=== PATIENT | male | born 1945 | race Caucasian/White ===

== ENCOUNTER 2018-07-02 20:43 | Inpatient (IN) | payer OTHER, MEDICARE ==
[2018-07-02] MEDS ORDERED: SODIUM CHLORIDE 0.9% 1,000 ML IV STA (21:14)
[2018-07-02 21:38] LABS: Basophils % (A) 0 %; Eosinophils # (A) 0.1 k/uL (0-0.7); Eosinophils % (A) 1 %; HCT 40.3 % (39.0-53.0); Lymphocytes # (A) 1.5 k/uL (1.0-4.8); Lymphocytes % (A) 12 %; MCH 29.9 pg (25.0-35.0); MCHC 34.7 g/dL (31.0-37.0); MCV 86.2 fL (80.0-100.0); Mean Platelet Volume 6.8; Monocytes # (A) 0.6 k/uL (0-1.0); Monocytes % (A) 5 %; Neutrophils # (A) 10.3 k/uL (1.3-7.7); Neutrophils % (A) 81 %; Platelet Count 216 k/uL (150-450); RBC 4.67 m/uL (4.30-5.90); RDW 13.3 % (11.5-15.5); WBC 12.8 k/uL (3.8-10.6)
[2018-07-02 21:59] LABS: Appearance,Urine Clear (Clear); Bilirubin,Urine Negative (Negative); Blood,Urine Trace (Negative); Color,Urine Yellow; Glucose,Urine (UA) Negative (Negative); Ketones,Urine Negative (Negative); Leukocyte Esterase,Urine Negative (Negative); Mucus,Urine Rare /hpf; Nitrite,Urine Negative (Negative); Protein,Urine Negative (Negative); RBC,Urine 1 /hpf (0-5); Squamous Epithelial Cell,Urine <1 /hpf (0-4); Urobilinogen,Urine <2.0 mg/dL (<2.0); WBC,Urine <1 /hpf (0-5)
[2018-07-02 22:08] LABS: Albumin 4.3 g/dL (3.5-5.0); Calcium 9.3 mg/dL (8.4-10.2); Potassium 4.2 mmol/L (3.5-5.1); Total Protein 7.1 g/dL (6.3-8.2)
--- NOTE | 2018-07-02 22:12 | ED ---
Abdominal Pain HPI - General Source: patient Mode of arrival: ambulatory Limitations: no limitations <Farrah Hernandez - Last Filed: 07/03/18 00:55> <Kenya Eaton - Last Filed: 07/03/18 08:03> - General Chief Complaint: Abdominal Pain Stated Complaint: Abd pain Time Seen by Provider: 07/02/18 21:09 - History of Present Illness Initial Comments: 72-year-old male patient presents to emergency department today for evaluation of left lower quadrant abdominal pain. Patient states this started around 2:00 this afternoon. Patient states the pain is present constant symptoms onset. Patient states the pain is sharp in nature. States any type of movement or pressure over the area causes an increase of the pain. Patient denies any known fevers or chills. Denies any nausea, vomiting, constipation, diarrhea. States he is urinating without difficulty and denies any hematuria, dysuria, urinary frequency, urinary urgency. Patient denies any history of similar type pain. Patient states his last colonoscopy was 4 years ago and was clean. Patient denies any history of abdominal surgery. States he does have history of high cholesterol and hypertension but is otherwise healthy. Patient denies any recent rash, shortness breath, chest pain, back pain, numbness, tingling, dizziness, weakness, headache, visual changes, or any other complaints. (Farrah Hernandez) - Related Data Allergies Allergy/AdvReac Type Severity Reaction Status Date / Time codeine Allergy Nausea & Verified 07/02/18 21:01 Vomiting meperidine [From Demerol] Allergy Nausea & Verified 07/02/18 21:01 Vomiting Review of Systems ROS Other: All systems not noted in ROS Statement are negative. <Farrah Hernandez - Last Filed: 07/03/18 00:55> ROS Other: All systems not noted in ROS Statement are negative. <Kenya Eaton - Last Filed: 07/03/18 08:03> ROS Statement: Those systems with pertinent positive or pertinent negative responses have been documented in the HPI. Past Medical History Past Medical History: Hyperlipidemia History of Any Multi-Drug Resistant Organisms: None Reported Past Surgical History: Tonsillectomy Past Psychological History: Depression Smoking Status: Never smoker Past Alcohol Use History: Rare Past Drug Use History: None Reported - Past Family History Mother Family Medical History: No Reported History Additional Family Medical History / Comment(s): gallbladder removal Brother(s) Family Medical History: No Reported History <Farrah Hernandez Pau - Last Filed: 07/03/18 00:55> General Exam Limitations: no limitations General appearance: alert, in no apparent distress, other (Physical well-d eveloped, well-nourished elderly male patient in no acute distress. Vital signs upon presentation are temperature 100.0F, pulse 68, respirations 18, blood pressure 140/73, pulse ox 98% on room air.) Eye exam: Present: normal appearance, PERRL, EOMI. Absent: scleral icterus, conjunctival injection, periorbital swelling ENT exam: Present: normal exam, normal oropharynx, mucous membranes moist Respiratory exam: Present: normal lung sounds bilaterally. Absent: respiratory distress, wheezes, rales, rhonchi, stridor Cardiovascular Exam: Present: regular rate, normal rhythm, normal heart sounds. Absent: systolic murmur, diastolic murmur, rubs, gallop, clicks GI/Abdominal exam: Present: soft, tenderness (Left lower quadrant tenderness), guarding, normal bowel sounds. Absent: distended, rebound, rigid Neurological exam: Present: alert, oriented X3, CN II-XII intact Psychiatric exam: Present: normal affect, normal mood Skin exam: Present: warm, dry, intact, normal color. Absent: rash <Farrah Hernandez Pau - Last Filed: 07/03/18 00:55> Course Vital Signs 07/02/18 07/02/18 07/03/18 20:56 22:49 00:24 Temperature 100.0 F H 100.4 F H 100.2 F H Pulse Rate 68 78 72 Pulse Rate [ Pulse Oximetery ] Respiratory 18 18 18 Rate Blood Pressure 140/73 152/77 124/68 Blood Pressure [Right Arm] O2 Sat by Pulse 98 98 95 Oximetry 07/03/18 00:47 Temperature 98.4 F Pulse Rate Pulse Rate [ 77 Pulse Oximetery ] Respiratory 14 Rate Blood Pressure Blood Pressure 148/75 [Right Arm] O2 Sat by Pulse 95 Oximetry Medical Decision Making - Lab Data Result diagrams: 07/02/18 21:25 07/02/18 21:25 - Radiology Data Radiology results: report reviewed, image reviewed <Farrah Hernandez - Last Filed: 07/03/18 00:55> - Lab Data Result diagrams: 07/02/18 21:25 07/02/18 21:25 <Kenya Eaton - Last Filed: 07/03/18 08:03> - Medical Decision Making 72-year-old male patient presents to the emergency department today for evaluation of left lower quadrant abdominal pain. Patient did have elevated temperature upon arrival. Physical examination did reveal left lower quadrant abdominal tenderness. Labs reviewed and did reveal leukocytosis with a white count of 12.8. CT abdomen and pelvis was obtained and did show evidence for diverticulitis involving the distal descending colon. Patient be admitted for IV antibiotics including Rocephin and Flagyl. Pain management will be provided. I did discuss findings, results, and plan with the patient. He is agreeable. My attending Dr. Eaton did discuss the case with Dr. Obrien who is accepting. (Farrah Hernandez) I was available for consultation in the emergency department. The history and physical exam were done by the midlevel provider. I was consulted for this patient's care. I reviewed the case with the midlevel provider and based on their presentation of the patient, I agree with the assessment, medical decision making and plan of care as documented. I discussed patient care with the admitting physician Dr. Obrien who accepts the admission for 72-year-old gentleman with diverticulitis. Chart was dictated using [employer] dictation software. Attempts were made to correct any dictation errors however some typographical errors may persist. (Kenya Eaton) - Lab Data Lab Results 07/02/18 07/02/18 07/02/18 Range/Units 21:25 21:25 21:25 WBC 12.8 H (3.8-10.6) k/uL RBC 4.67 (4.30-5.90) m/uL Hgb 14.0 (13.0-17.5) gm/dL Hct 40.3 (39.0-53.0) % MCV 86.2 (80.0-100.0) fL MCH 29.9 (25.0-35.0) pg MCHC 34.7 (31.0-37.0) g/dL RDW 13.3 (11.5-15.5) % Plt Count 216 (150-450) k/uL Neutrophils % 81 % Lymphocytes % 12 % Monocytes % 5 % Eosinophils % 1 % Basophils % 0 % Neutrophils # 10.3 H (1.3-7.7) k/uL Lymphocytes # 1.5 (1.0-4.8) k/uL Monocytes # 0.6 (0-1.0) k/uL Eosinophils # 0.1 (0-0.7) k/uL Basophils # 0.0 (0-0.2) k/uL Sodium 139 (137-145) mmol/L Potassium 4.2 (3.5-5.1) mmol/L Chloride 105 (98-107) mmol/L Carbon Dioxide 23 (22-30) mmol/L Anion Gap 11 mmol/L BUN 12 (9-20) mg/dL Creatinine 1.00 (0.66-1.25) mg/dL Est GFR (CKD-EPI)AfAm 87 (>60 ml/min/1.73 sqM) Est GFR (CKD-EPI)NonAf 75 (>60 ml/min/1.73 sqM) Glucose 141 H (74-99) mg/dL Plasma Lactic Acid Rashad 1.3 (0.7-2.0) mmol/L Calcium 9.3 (8.4-10.2) mg/dL Total Bilirubin 1.0 (0.2-1.3) mg/dL AST 20 (17-59) U/L ALT 27 (21-72) U/L Alkaline Phosphatase 90 (38-126) U/L Total Protein 7.1 (6.3-8.2) g/dL Albumin 4.3 (3.5-5.0) g/dL Amylase 49 (30-110) U/L Lipase 48 (23-300) U/L Urine Color Urine Appearance (Clear) Urine pH (5.0-8.0) Ur Specific Staley (1.001-1.035) Urine Protein (Negative) Urine Glucose (UA) (Negative) Urine Ketones (Negative) Urine Blood (Negative) Urine Nitrite (Negative) Urine Bilirubin (Negative) Urine Urobilinogen (<2.0) mg/dL Ur Leukocyte Esterase (Negative) Urine RBC (0-5) /hpf Urine WBC (0-5) /hpf Ur Squamous Epith Cells (0-4) /hpf Urine Mucus (None) /hpf 05/05/19 Range/Units 21:40 WBC (3.8-10.6) k/uL RBC (4.30-5.90) m/uL Hgb (13.0-17.5) gm/dL Hct (39.0-53.0) % MCV (80.0-100.0) fL MCH (25.0-35.0) pg MCHC (31.0-37.0) g/dL RDW (11.5-15.5) % Plt Count (150-450) k/uL Neutrophils % % Lymphocytes % % Monocytes % % Eosinophils % % Basophils % % Neutrophils # (1.3-7.7) k/uL Lymphocytes # (1.0-4.8) k/uL Monocytes # (0-1.0) k/uL Eosinophils # (0-0.7) k/uL Basophils # (0-0.2) k/uL Sodium (137-145) mmol/L Potassium (3.5-5.1) mmol/L Chloride (98-107) mmol/L Carbon Dioxide (22-30) mmol/L Anion Gap mmol/L BUN (9-20) mg/dL Creatinine (0.66-1.25) mg/dL Est GFR (CKD-EPI)AfAm (>60 ml/min/1.73 sqM) Est GFR (CKD-EPI)NonAf (>60 ml/min/1.73 sqM) Glucose (74-99) mg/dL Plasma Lactic Acid Rashad (0.7-2.0) mmol/L Calcium (8.4-10.2) mg/dL Total Bilirubin (0.2-1.3) mg/dL AST (17-59) U/L ALT (21-72) U/L Alkaline Phosphatase (38-126) U/L Total Protein (6.3-8.2) g/dL Albumin (3.5-5.0) g/dL Amylase (30-110) U/L Lipase (23-300) U/L Urine Color Yellow Urine Appearance Clear (Clear) Urine pH 6.0 (5.0-8.0) Ur Specific Staley 1.020 (1.001-1.035) Urine Protein Negative (Negative) Urine Glucose (UA) Negative (Negative) Urine Ketones Negative (Negative) Urine Blood Trace H (Negative) Urine Nitrite Negative (Negative) Urine Bilirubin Negative (Negative) Urine Urobilinogen <2.0 (<2.0) mg/dL Ur Leukocyte Esterase Negative (Negative) Urine RBC 1 (0-5) /hpf Urine WBC <1 (0-5) /hpf Ur Squamous Epith Cells <1 (0-4) /hpf Urine Mucus Rare H (None) /hpf - Radiology Data CT abdomen and pelvis was obtained. Report was reviewed in its entirety. Impression by Dr. Chris shows diverticulitis involving the distal descending colon. No evidence for perforation or abscess collection. (Farrah Hernandez) Disposition Decision to Admit Reason: Admit from EC Decision Date: 07/02/18 Decision Time: 23:28 <Farrah Hernandez - Last Filed: 07/03/18 00:55> <Kenya Eatno - Last Filed: 07/03/18 08:03> Clinical Impression: Acute diverticulitis Disposition: ADMITTED IP TO THIS [facility] Condition: Serious
[2018-07-02] MEDS ORDERED: ACETAMINOPHEN TAB 325 MG TAB PO STA (22:51)
--- NOTE | 2018-07-02 23:10 | CT ---
EXAM: CT Abdomen and Pelvis With Intravenous Contrast CLINICAL HISTORY: abdominal pain TECHNIQUE: Axial computed tomography images of the abdomen and pelvis with intravenous contrast. CTDI is 24.6 mGy and DLP is 1233.5 mGy-cm. This CT exam was performed using one or more of the following dose reduction techniques: automated exposure control, adjustment of the mA and/or kV according to patient size, and/or use of iterative reconstruction technique. COMPARISON: No relevant prior studies available. FINDINGS: Lung bases: Unremarkable. No mass. No consolidation. ABDOMEN: Liver: Unremarkable. No mass. Gallbladder and bile ducts: Unremarkable. No calcified stones. No ductal dilation. Pancreas: Unremarkable. No mass. No ductal dilation. Spleen: Unremarkable. No splenomegaly. Adrenals: Unremarkable. No mass. Kidneys and ureters: Unremarkable. No solid mass. No hydronephrosis. Stomach and bowel: There is inflammation around the distal descending colon consistent with diverticulitis. There is no evidence for abscess collection is no free air. No free fluid. PELVIS: Appendix: No findings to suggest acute appendicitis. Bladder: Unremarkable. No mass. Reproductive: Unremarkable as visualized. ABDOMEN and PELVIS: Intraperitoneal space: Unremarkable. No free air. No significant fluid collection. Bones/joints: No acute fracture. No dislocation. Soft tissues: Unremarkable. Vasculature: Unremarkable. No abdominal aortic aneurysm. Lymph nodes: Unremarkable. No enlarged lymph nodes. IMPRESSION: Diverticulitis involving the distal descending colon. No evidence for perforation or abscess collection.
[2018-07-02] MEDS ORDERED: NALOXONE 0.4 MG/ML 1 ML VIAL IV PRN (23:24)
[2018-07-02] MEDS ORDERED: ONDANSETRON 4 MG/2 ML VIAL IVP PRN (23:24)
[2018-07-02] MEDS: MORPHINE SULFATE 4 MG/ML SYRINGE IV PRN (23:30)
[2018-07-02] MEDS ORDERED: metroNIDAZOLE-NS PMX 500 MG in SALINE 1 100ML.BAG IVPB ONE (23:45)
[2018-07-02] MEDS: SODIUM CHLORIDE 0.9% 1,000 ML IV SCH (23:54)
[2018-07-03] MEDS: metroNIDAZOLE-NS PMX 500 MG in SALINE 1 100ML.BAG IVPB SCH ×2 (08:40→17:16)
[2018-07-03] MEDS: ATORVASTATIN 10 MG TAB PO SCH (08:44)
[2018-07-03] MEDS: buPROPion XL 300 MG TAB.ER.24H PO SCH (09:41)
--- NOTE | 2018-07-03 09:56 | P.HPIM ---
History of Present Illness H&P Date: 07/03/18 This is a 72-year-old male patient of Dr. Douglas. Patient presented with complaints of abdominal pain that started yesterday afternoon. Patient denies any nausea vomiting or diarrhea. CT of abdomen and pelvis completed showing diverticulitis involving the distal descending colon. No evidence for perforation or abscess collection. Patient has a past medical history of hyperlipidemia and depression. Patient has elevated white count of 12.8. Patient also febrile with a temp of 100.3. Patient is currently sitting up in chair. Patient is maintained on clear liquid diet. At this time patient is still having some abdominal pain. Patient denies nausea vomiting or diarrhea. Patient denies any blood with stool. Patient is maintained on Flagyl and Rocephin for IV antibiotics. Blood culture has been ordered. Patient denies any significant cardiac or pulmonary history. Patient denies alcohol or nicotine use. Patient denies chest pain or shortness breath. Patient denies any nausea or vomiting. Patient is complaining of abdominal pain. Patient denies any urinary burning or frequency. Review of Systems Please refer to HPI otherwise unremarkable Past Medical History Past Medical History: Hyperlipidemia History of Any Multi-Drug Resistant Organisms: None Reported Past Surgical History: Tonsillectomy Additional Past Surgical History / Comment(s): left wrist ganglion cyst removed Past Anesthesia/Blood Transfusion Reactions: No Reported Reaction Past Psychological History: Depression Smoking Status: Never smoker Past Alcohol Use History: Rare Past Drug Use History: None Reported - Past Family History Mother Family Medical History: No Reported History Additional Family Medical History / Comment(s): gallbladder removal Brother(s) Family Medical History: No Reported History Medications and Allergies Home Medications Medication Instructions Recorded Confirmed Type Ergocalciferol (Vitamin D2) 50,000 units PO SA 07/03/18 07/03/18 History [Vitamin D2] Multivitamins, Thera [Multivitamin 1 tab PO DAILY 07/03/18 07/03/18 History (formulary)] OLANZapine [ZyPREXA] 7.5 mg PO HS 07/03/18 07/03/18 History Simvastatin [Zocor] 20 mg PO DAILY 07/03/18 07/03/18 History buPROPion XL [Wellbutrin XL] 300 mg PO DAILY 07/03/18 07/03/18 History traZODone HCL [TraZODone HCl] 50 mg PO HS 07/03/18 07/03/18 History Allergies Allergy/AdvReac Type Severity Reaction Status Date / Time codeine Allergy Nausea & Verified 07/03/18 08:25 Vomiting meperidine [From Demerol] Allergy Nausea & Verified 07/03/18 08:25 Vomiting Physical Exam Vitals: Vital Signs Temp Pulse Pulse Resp BP BP Pulse Ox 07/03/18 08:47 99.1 F 07/03/18 05:00 100.3 F H 60 22 145/70 90 L 07/03/18 00:47 98.4 F 77 14 148/75 95 07/03/18 00:24 100.2 F H 72 18 124/68 95 07/02/18 22:49 100.4 F H 78 18 152/77 98 07/02/18 20:56 100.0 F H 68 18 140/73 98 Intake and Output 07/02/18 07/03/18 07/03/18 22:59 06:59 14:59 Intake Total 400 320 Balance 400 320 Intake: Intake, IV Titration 400 Amount Sodium Chloride 0.9% 1, 300 000 ml @ 50 mls/hr IV . Q20H [facility] Rx#:[id number] metroNIDAZOLE-NS PMX 500 100 mg In Saline 1 100ml.bag @ 100 mls/hr IVPB ONCE ONE Rx#:[id number] Oral 320 Other: Voiding Method Toilet Weight 97.522 kg Head normocephalic Neck supple Lungs clear to auscultation bilaterally no wheezing or crackles Heart regular rate and rhythm S1-S2, no rub or gallop Abdomen rounded with left lower quadrant tenderness to palpation Extremities no edema Neuro alert and orientated to 3 Results CBC & Chem 7: 07/02/18 21:25 07/02/18 21:25 Labs: Abnormal Lab Results - Last 24 Hours (Table) 07/02/18 07/02/18 07/02/18 Range/Units 21:25 21:25 21:40 WBC 12.8 H (3.8-10.6) k/uL Neutrophils # 10.3 H (1.3-7.7) k/uL Glucose 141 H (74-99) mg/dL Urine Blood Trace H (Negative) Urine Mucus Rare H (None) /hpf Thrombosis Risk Factor Assmnt - Choose All That Apply Each Factor Represents 1 point: Obesity (BMI >25) Other Risk Factors: Yes Each Risk Factor Represents 2 Points: Age 61-74 years Other congenital or acquired thrombophilia - If yes, enter type in comment: No Thrombosis Risk Factor Assessment Total Risk Factor Score: 3 Thrombosis Risk Factor Assessment Level: Moderate Risk Assessment and Plan Assessment: 1. Diverticulitis with fever. CT of abdomen and pelvis completed showing diverticulitis involving the distal descending colon. No evidence for perforation or abscess collection. Patient started on Flagyl and Rocephin for IV antibiotics currently maintained on clear liquid diet. 2. History of hyperlipidemia. Maintained on Lipitor 3. History of depression. Home meds resumed DVT prophylaxis Lovenox. GI prophylaxis Protonix Time with Patient: Greater than 30 (Greater than 60% of the total time spent in counseling and coordination of care. I performed an examination of the patient and discussed their management with the Nurse Practitioner. I have reviewed the Nurse Practitioner's notes and agree with the documented findings and plan of care)
[2018-07-03 09:57] LABS: Basophils % (A) 0 %; Eosinophils # (A) 0.1 k/uL (0-0.7); Eosinophils % (A) 1 %; HCT 39.6 % (39.0-53.0); HGB 13.7 gm/dL (13.0-17.5); Lymphocytes # (A) 1.2 k/uL (1.0-4.8); Lymphocytes % (A) 10 %; MCH 30.2 pg (25.0-35.0); MCHC 34.6 g/dL (31.0-37.0); MCV 87.3 fL (80.0-100.0); Mean Platelet Volume 7.1; Monocytes # (A) 0.6 k/uL (0-1.0); Monocytes % (A) 5 %; Neutrophils # (A) 9.7 k/uL (1.3-7.7); Neutrophils % (A) 83 %; Platelet Count 201 k/uL (150-450); RBC 4.54 m/uL (4.30-5.90); WBC 11.6 k/uL (3.8-10.6)
--- NOTE | 2018-07-03 13:35 | P.GSCN ---
History of Present Illness Consult date: 07/03/18 Reason for Consult: Diverticulitis Requesting physician: Yenny Ferrell History of present illness: CHIEF COMPLAINT: Abdominal pain HISTORY OF PRESENT ILLNESS: 72-year-old male who presented to emergency room with a chief complaint of abdominal pain. Patient reports he began having left lower quadrant abdominal pain that worsened in severity. He reports low grade fevers at home. Denies nausea or vomiting. Denies constipation or diarrhea. Patient denies previous episodes of diverticulitis. Reports having colonoscopy [address] Moreno and states it was normal. PAST MEDICAL HISTORY: See list. PAST SURGICAL HISTORY: See list. SOCIAL HISTORY: No illicit drug use. REVIEW OF SYSTEMS: CONSTITUTIONAL: Reports fever at home HEENT: Denies blurred vision, vision changes, or eye pain. Denies hemoptysis CARDIOVASCULAR: Denies chest pain or pressure. RESPIRATORY: No shortness of breath. GASTROINTESTINAL: Refer to HPI for pertinent findings HEMATOLOGIC: Denies bleeding disorders. GENITOURINARY: Denies any blood in urine. SKIN: Denies pruitis. Denies rash. PHYSICAL EXAM: VITAL SIGNS: Reviewed. GENERAL: Well-developed in no acute distress. HEENT: No sclera icterus. Extraocular movements grossly intact. Moist buccal mucosa. Head is atraumatic, normocephalic. ABDOMEN: Soft. Nondistended. Tenderness upon palpation of left lower quadrant. NEUROLOGIC: Alert and oriented. Cranial nerves II through XII grossly intact. LABORATORY DATA: WBC 12.8 on admission. Repeat 11.6 IMAGING: CT abdomen and pelvis: Diverticulitis involving the distal descending colon. No evidence for perforation or abscess. ASSESSMENT: 1. Abdominal pain 2. Acute diverticulitis PLAN: 1. Continue antibiotics 2. Continue clear liquid diet 3. No surgical intervention recommended at this time Nurse practitioner note has been reviewed by physician. Signing provider agrees with the documented findings, assessment, and plan of care. Past Medical History Past Medical History: Hyperlipidemia History of Any Multi-Drug Resistant Organisms: None Reported Past Surgical History: Tonsillectomy Additional Past Surgical History / Comment(s): left wrist ganglion cyst removed Past Anesthesia/Blood Transfusion Reactions: No Reported Reaction Past Psychological History: Depression Smoking Status: Never smoker Past Alcohol Use History: Rare Past Drug Use History: None Reported - Past Family History Mother Family Medical History: No Reported History Additional Family Medical History / Comment(s): gallbladder removal Brother(s) Family Medical History: No Reported History Medications and Allergies Home Medications Medication Instructions Recorded Confirmed Type Ergocalciferol (Vitamin D2) 50,000 units PO SA 07/03/18 07/03/18 History [Vitamin D2] Multivitamins, Thera [Multivitamin 1 tab PO DAILY 07/03/18 07/03/18 History (formulary)] OLANZapine [ZyPREXA] 7.5 mg PO HS 07/03/18 07/03/18 History Simvastatin [Zocor] 20 mg PO DAILY 07/03/18 07/03/18 History buPROPion XL [Wellbutrin XL] 300 mg PO DAILY 07/03/18 07/03/18 History traZODone HCL [TraZODone HCl] 50 mg PO HS 07/03/18 07/03/18 History Allergies Allergy/AdvReac Type Severity Reaction Status Date / Time codeine Allergy Nausea & Verified 07/03/18 08:25 Vomiting meperidine [From Demerol] Allergy Nausea & Verified 07/03/18 08:25 Vomiting Surgical - Exam Vital Signs Temp Pulse Resp BP Pulse Ox 100.0 F H 68 18 140/73 98 07/02/18 20:56 07/02/18 20:56 07/02/18 20:56 07/02/18 20:56 07/02/18 20:56 Results - Labs 07/03/18 09:34 07/02/18 21:25 Abnormal Lab Results - Last 24 Hours (Table) 07/02/18 07/02/18 07/02/18 Range/Units 21:25 21:25 21:40 WBC 12.8 H (3.8-10.6) k/uL Neutrophils # 10.3 H (1.3-7.7) k/uL Glucose 141 H (74-99) mg/dL Urine Blood Trace H (Negative) Urine Mucus Rare H (None) /hpf 07/03/18 Range/Units 09:34 WBC 11.6 H (3.8-10.6) k/uL Neutrophils # 9.7 H (1.3-7.7) k/uL Glucose (74-99) mg/dL Urine Blood (Negative) Urine Mucus (None) /hpf Diabetes panel 07/02/18 Range/Units 21:25 Sodium 139 (137-145) mmol/L Potassium 4.2 (3.5-5.1) mmol/L Chloride 105 (98-107) mmol/L Carbon Dioxide 23 (22-30) mmol/L BUN 12 (9-20) mg/dL Creatinine 1.00 (0.66-1.25) mg/dL Glucose 141 H (74-99) mg/dL Calcium 9.3 (8.4-10.2) mg/dL AST 20 (17-59) U/L ALT 27 (21-72) U/L Alkaline Phosphatase 90 (38-126) U/L Total Protein 7.1 (6.3-8.2) g/dL Albumin 4.3 (3.5-5.0) g/dL Calcium panel 07/02/18 Range/Units 21:25 Calcium 9.3 (8.4-10.2) mg/dL Albumin 4.3 (3.5-5.0) g/dL Pituitary panel 07/02/18 Range/Units 21:25 Sodium 139 (137-145) mmol/L Potassium 4.2 (3.5-5.1) mmol/L Chloride 105 (98-107) mmol/L Carbon Dioxide 23 (22-30) mmol/L BUN 12 (9-20) mg/dL Creatinine 1.00 (0.66-1.25) mg/dL Glucose 141 H (74-99) mg/dL Calcium 9.3 (8.4-10.2) mg/dL Adrenal panel 07/02/18 Range/Units 21:25 Sodium 139 (137-145) mmol/L Potassium 4.2 (3.5-5.1) mmol/L Chloride 105 (98-107) mmol/L Carbon Dioxide 23 (22-30) mmol/L BUN 12 (9-20) mg/dL Creatinine 1.00 (0.66-1.25) mg/dL Glucose 141 H (74-99) mg/dL Calcium 9.3 (8.4-10.2) mg/dL Total Bilirubin 1.0 (0.2-1.3) mg/dL AST 20 (17-59) U/L ALT 27 (21-72) U/L Alkaline Phosphatase 90 (38-126) U/L Total Protein 7.1 (6.3-8.2) g/dL Albumin 4.3 (3.5-5.0) g/dL
[2018-07-03] MEDS: MORPHINE SULFATE 4 MG/ML SYRINGE IV PRN ×2 (15:18→20:42)
[2018-07-03] MEDS: ACETAMINOPHEN TAB 325 MG TAB PO PRN (15:46)
[2018-07-03] MEDS: SODIUM CHLORIDE 0.9% 1,000 ML IV SCH (20:36)
[2018-07-03] MEDS: OLANZapine 2.5 MG TAB PO SCH (20:36)
[2018-07-03] MEDS: traZODone HCL 50 MG TAB PO SCH (20:36)
[2018-07-03] MEDS: PANTOPRAZOLE 40 MG/10 ML VIAL IVP SCH (20:36)
[2018-07-04] MEDS: metroNIDAZOLE-NS PMX 500 MG in SALINE 1 100ML.BAG IVPB SCH ×3 (00:59→17:10)
[2018-07-04] MEDS: PANTOPRAZOLE 40 MG/10 ML VIAL IVP SCH ×2 (08:25→22:04)
[2018-07-04] MEDS: ATORVASTATIN 10 MG TAB PO SCH (08:25)
[2018-07-04] MEDS: buPROPion XL 300 MG TAB.ER.24H PO SCH (08:26)
[2018-07-04] MEDS ORDERED: ENOXAPARIN 40 MG/0.4 ML SYRINGE SQ SCH (09:00)
--- NOTE | 2018-07-04 09:33 | P.PN ---
Subjective Progress Note Date: 07/04/18 This is a 72-year-old male patient of Dr. Douglas. Patient presented with complaints of abdominal pain that started yesterday afternoon. Patient denies any nausea vomiting or diarrhea. CT of abdomen and pelvis completed showing diverticulitis involving the distal descending colon. No evidence for per foration or abscess collection. Patient has a past medical history of hyperlipidemia and depression. Patient has elevated white count of 12.8. Patient also febrile with a temp of 100.3. Patient is currently sitting up in chair. Patient is maintained on clear liquid diet. At this time patient is still having some abdominal pain. Patient denies nausea vomiting or diarrhea. Patient denies any blood with stool. Patient is maintained on Flagyl and Rocephin for IV antibiotics. Blood culture has been ordered. Patient denies any significant cardiac or pulmonary history. Patient denies alcohol or nicotine use. Patient denies chest pain or shortness breath. Patient denies any nausea or vomiting. Patient is complaining of abdominal pain. Patient denies any urinary burning or frequency. On 07/04/2018 patient is alert and oriented 3. Patient does report some pain improvement with lower abdomen. Slightly tender to palpation. Any bowel movement. Patient remains on clear liquid diet. Patient was evaluated by surgical services. No surgical intervention at this time. We'll continue IV antibiotics Rocephin and Flagyl. At this time patient denies chest pain or shortness breath. Patient denies nausea or vomiting. Patient denies any urinary burning or frequency Objective - Vital Signs Vital signs: Vital Signs Temp 98.8 F 07/04/18 04:18 Pulse 81 07/04/18 04:18 Resp 20 07/04/18 04:18 BP 145/60 07/04/18 04:18 Pulse Ox 91 L 07/04/18 04:18 Intake & Output 07/03/18 07/04/18 07/04/18 18:59 06:59 18:59 Intake Total 640 Balance 640 Intake: Oral 640 Other: Voiding Method Toilet # Voids 2 4 # Bowel Movements 0 - Exam please refer to HPI otherwise unremarkable - Labs CBC & Chem 7: 07/03/18 09:34 07/02/18 21:25 Labs: Abnormal Lab Results - Last 24 Hours (Table) 07/03/18 Range/Units 09:34 WBC 11.6 H (3.8-10.6) k/uL Neutrophils # 9.7 H (1.3-7.7) k/uL Microbiology - Last 24 Hours (Table) 07/02/18 21:25 Blood Culture - Preliminary Blood No Growth after 24 hours Assessment and Plan Assessment: 1. Diverticulitis with fever. CT of abdomen and pelvis completed showing diverticulitis involving the distal descending colon. No evidence for perforation or abscess collection. Patient started on Flagyl and Rocephin for IV antibiotics currently maintained on clear liquid diet. Patient was evaluated by surgical services. No surgical intervention at this time. 2. History of hyperlipidemia. Maintained on Lipitor 3. History of depression. Home meds resumed DVT prophylaxis Lovenox. GI prophylaxis Protonix I performed an examination of the patient and discussed their management with the Nurse Practitioner. I have reviewed the Nurse Practitioner's notes and agree with the documented findings and plan of care
[2018-07-04 09:37] LABS: Albumin 3.4 g/dL (3.5-5.0); Calcium 8.2 mg/dL (8.4-10.2); Potassium 3.7 mmol/L (3.5-5.1); Total Bilirubin 1.7 mg/dL (0.2-1.3)
[2018-07-04 09:38] LABS: Basophils % (A) 0 %; Eosinophils # (A) 0.1 k/uL (0-0.7); Eosinophils % (A) 0 %; HCT 37.1 % (39.0-53.0); HGB 12.5 gm/dL (13.0-17.5); Lymphocytes # (A) 1.2 k/uL (1.0-4.8); Lymphocytes % (A) 10 %; MCH 30.3 pg (25.0-35.0); MCHC 33.7 g/dL (31.0-37.0); MCV 89.9 fL (80.0-100.0); Mean Platelet Volume 6.8; Monocytes # (A) 0.4 k/uL (0-1.0); Monocytes % (A) 3 %; Neutrophils # (A) 9.7 k/uL (1.3-7.7); Neutrophils % (A) 85 %; Platelet Count 175 k/uL (150-450); RBC 4.13 m/uL (4.30-5.90); RDW 13.4 % (11.5-15.5); WBC 11.4 k/uL (3.8-10.6)
--- NOTE | 2018-07-04 13:18 | P.PN ---
Subjective Progress Note Date: 07/04/18 CHIEF COMPLAINT: Abdominal pain HISTORY OF PRESENT ILLNESS: Patient seen and examined at the bedside. Patient continues to have left lower quadrant tenderness although he states it is improved from yesterday. He is currently rating his pain a 8, compared to a 9 yesterday. Patient tolerating clear liquid diet. Reports passing flatus and bowel movement this morning. Denies nausea or vomiting. WBC today 11.4. Hemoglobin 12.5. PHYSICAL EXAM: VITAL SIGNS: Reviewed. GENERAL: Well-developed in no acute distress. HEENT: No sclera icterus. Extraocular movements grossly intact. Moist buccal mucosa. Head is atraumatic, normocephalic. ABDOMEN: Soft. Nondistended. Tenderness upon palpation of left lower quadrant. NEUROLOGIC: Alert and oriented. Cranial nerves II through XII grossly intact. ASSESSMENT: 1. Abdominal pain 2. Acute diverticulitis PLAN: 1. Continue antibiotics 2. Continue clear liquid diet for today. Possibility of advancing patient's diet tomorrow if pain improves 3. No surgical intervention recommended at this time Nurse practitioner note has been reviewed by physician. Signing provider agrees with the documented findings, assessment, and plan of care. Objective - Vital Signs Vital signs: Vital Signs Temp 98.8 F 07/04/18 04:18 Pulse 81 07/04/18 04:18 Resp 20 07/04/18 04:18 BP 145/60 07/04/18 04:18 Pulse Ox 91 L 07/04/18 04:18 Intake & Output 07/03/18 07/04/18 07/04/18 18:59 06:59 18:59 Intake Total 640 Balance 640 Intake: Oral 640 Other: Voiding Method Toilet # Voids 2 4 # Bowel Movements 0 - Labs CBC & Chem 7: 07/04/18 09:03 07/04/18 09:03 Labs: Abnormal Lab Results - Last 24 Hours (Table) 07/04/18 07/04/18 Range/Units 09:03 09:03 WBC 11.4 H (3.8-10.6) k/uL RBC 4.13 L (4.30-5.90) m/uL Hgb 12.5 L (13.0-17.5) gm/dL Hct 37.1 L (39.0-53.0) % Neutrophils # 9.7 H (1.3-7.7) k/uL Glucose 191 H (74-99) mg/dL Calcium 8.2 L (8.4-10.2) mg/dL Total Bilirubin 1.7 H (0.2-1.3) mg/dL AST 13 L (17-59) U/L Total Protein 6.0 L (6.3-8.2) g/dL Albumin 3.4 L (3.5-5.0) g/dL Microbiology - Last 24 Hours (Table) 07/02/18 21:25 Blood Culture - Preliminary Blood No Growth after 24 hours
[2018-07-04] MEDS: SODIUM CHLORIDE 0.9% 1,000 ML IV SCH (17:10)
[2018-07-04] MEDS: ACETAMINOPHEN TAB 325 MG TAB PO PRN (22:03)
[2018-07-04] MEDS: traZODone HCL 50 MG TAB PO SCH (22:03)
[2018-07-04] MEDS: OLANZapine 2.5 MG TAB PO SCH (22:07)
[2018-07-05] MEDS: metroNIDAZOLE-NS PMX 500 MG in SALINE 1 100ML.BAG IVPB SCH ×3 (01:58→16:26)
[2018-07-05] MEDS: buPROPion XL 300 MG TAB.ER.24H PO SCH (09:26)
[2018-07-05] MEDS: ATORVASTATIN 10 MG TAB PO SCH (09:26)
[2018-07-05] MEDS: PANTOPRAZOLE 40 MG/10 ML VIAL IVP SCH ×2 (09:26→20:46)
[2018-07-05 11:02] LABS: Basophils % (A) 0 %; Eosinophils # (A) 0.1 k/uL (0-0.7); Eosinophils % (A) 1 %; HCT 36.9 % (39.0-53.0); HGB 12.2 gm/dL (13.0-17.5); Lymphocytes # (A) 0.8 k/uL (1.0-4.8); Lymphocytes % (A) 10 %; MCH 29.5 pg (25.0-35.0); MCV 89.3 fL (80.0-100.0); Mean Platelet Volume 7.2; Monocytes # (A) 0.4 k/uL (0-1.0); Monocytes % (A) 5 %; Neutrophils # (A) 6.4 k/uL (1.3-7.7); Neutrophils % (A) 82 %; Platelet Count 204 k/uL (150-450); RBC 4.13 m/uL (4.30-5.90); WBC 7.8 k/uL (3.8-10.6)
--- NOTE | 2018-07-05 11:23 | P.PN ---
Subjective Progress Note Date: 07/05/18 CHIEF COMPLAINT: Abdominal pain HISTORY OF PRESENT ILLNESS: Patient seen and examined at the bedside. Patient reports significant improvement in abdominal pain. Left lower quadrant less tender today. Tolerating clear liquid diet. Asking for diet to be advanced. R eports BM yesterday. WBC 7.8. Temperature 101.0 yesterday but afebrile this morning. PHYSICAL EXAM: VITAL SIGNS: Reviewed. GENERAL: Well-developed in no acute distress. HEENT: No sclera icterus. Extraocular movements grossly intact. Moist buccal mucosa. Head is atraumatic, normocephalic. ABDOMEN: Soft. Nondistended. Mild tenderness upon palpation of left lower quadrant. NEUROLOGIC: Alert and oriented. Cranial nerves II through XII grossly intact. ASSESSMENT: 1. Abdominal pain 2. Acute diverticulitis PLAN: 1. Continue antibiotics 2. Advance diet to full liquid 3. No surgical intervention recommended at this time Nurse practitioner note has been reviewed by physician. Signing provider agrees with the documented findings, assessment, and plan of care. Objective - Vital Signs Vital signs: Vital Signs Temp 97.9 F 07/05/18 05:43 Pulse 64 07/05/18 05:43 Resp 18 07/05/18 05:43 BP 155/80 07/05/18 05:43 Pulse Ox 92 L 07/05/18 05:43 Intake & Output 07/04/18 07/05/18 07/05/18 18:59 06:59 18:59 Other: Voiding Method Toilet # Voids 3 2 - Labs CBC & Chem 7: 07/05/18 09:57 07/04/18 09:03 Labs: Abnormal Lab Results - Last 24 Hours (Table) 07/05/18 Range/Units 09:57 RBC 4.13 L (4.30-5.90) m/uL Hgb 12.2 L (13.0-17.5) gm/dL Hct 36.9 L (39.0-53.0) % Lymphocytes # 0.8 L (1.0-4.8) k/uL Microbiology - Last 24 Hours (Table) 07/02/18 21:25 Blood Culture - Preliminary Blood No Growth after 48 hours
[2018-07-05 11:49] LABS: ALT 22 U/L (21-72); AST 13 U/L (17-59); Albumin 3.5 g/dL (3.5-5.0); Alkaline Phosphatase 77 U/L (38-126); Anion Gap 5 mmol/L; Blood Urea Nitrogen 7 mg/dL (9-20); Calcium 8.6 mg/dL (8.4-10.2); Carbon Dioxide 28 mmol/L (22-30); Chloride 106 mmol/L (98-107); Glucose 124 mg/dL (74-99); Potassium 3.9 mmol/L (3.5-5.1); Sodium 139 mmol/L (137-145); Total Protein 6.1 g/dL (6.3-8.2)
[2018-07-05] MEDS: SODIUM CHLORIDE 0.9% 1,000 ML IV SCH (12:31)
--- NOTE | 2018-07-05 13:03 | P.PN ---
Subjective Progress Note Date: 07/05/18 This is a 72-year-old male patient of Dr. Douglas. Patient presented with complaints of abdominal pain that started yesterday afternoon. Patient denies any nausea vomiting or diarrhea. CT of abdomen and pelvis completed showing diverticulitis involving the distal descending colon. No evidence for per foration or abscess collection. Patient has a past medical history of hyperlipidemia and depression. Patient has elevated white count of 12.8. Patient also febrile with a temp of 100.3. Patient is currently sitting up in chair. Patient is maintained on clear liquid diet. At this time patient is still having some abdominal pain. Patient denies nausea vomiting or diarrhea. Patient denies any blood with stool. Patient is maintained on Flagyl and Rocephin for IV antibiotics. Blood culture has been ordered. Patient denies any significant cardiac or pulmonary history. Patient denies alcohol or nicotine use. Patient denies chest pain or shortness breath. Patient denies any nausea or vomiting. Patient is complaining of abdominal pain. Patient denies any urinary burning or frequency. On 07/04/2018 patient is alert and oriented 3. Patient does report some pain improvement with lower abdomen. Slightly tender to palpation. Any bowel movement. Patient remains on clear liquid diet. Patient was evaluated by surgical services. No surgical intervention at this time. We'll continue IV antibiotics Rocephin and Flagyl. At this time patient denies chest pain or shortness breath. Patient denies nausea or vomiting. Patient denies any urinary burning or frequency On 07/05/2018 patient is alert and oriented 3. Patient does state some improvement with Utting pain. Patient is still having slight tenderness. Patient also having bowel movements. Patient febrile last night was 101. Patient remains on Flagyl and Rocephin for IV antibiotics. At this time patient denies chest pain or shortness breath. Patient denies nausea vomiting or diarrhea. Patient denies any urinary burning or frequency Objective - Vital Signs Vital signs: Vital Signs Temp 98.2 F 07/05/18 12:18 Pulse 61 07/05/18 12:18 Resp 18 07/05/18 12:18 BP 130/74 07/05/18 12:18 Pulse Ox 96 07/05/18 12:18 Intake & Output 07/04/18 07/05/18 07/05/18 18:59 06:59 18:59 Other: Voiding Method Toilet # Voids 3 2 - Exam please refer to HPI otherwise unremarkable - Labs CBC & Chem 7: 07/05/18 09:57 07/05/18 09:57 Labs: Abnormal Lab Results - Last 24 Hours (Table) 07/05/18 07/05/18 Range/Units 09:57 09:57 RBC 4.13 L (4.30-5.90) m/uL Hgb 12.2 L (13.0-17.5) gm/dL Hct 36.9 L (39.0-53.0) % Lymphocytes # 0.8 L (1.0-4.8) k/uL BUN 7 L (9-20) mg/dL Glucose 124 H (74-99) mg/dL AST 13 L (17-59) U/L Total Protein 6.1 L (6.3-8.2) g/dL Microbiology - Last 24 Hours (Table) 07/02/18 21:25 Blood Culture - Preliminary Blood No Growth after 48 hours Assessment and Plan Assessment: 1. Diverticulitis with fever. CT of abdomen and pelvis completed showing di verticulitis involving the distal descending colon. No evidence for perforation or abscess collection. Patient started on Flagyl and Rocephin for IV antibiotics currently maintained on clear liquid diet. Patient was evaluated by surgical services. No surgical intervention at this time. Patient still having elevated tmep 101. Diet has been advanced to full liquid per surgical services. 2. History of hyperlipidemia. Maintained on Lipitor 3. History of depression. Home meds resumed DVT prophylaxis Lovenox. GI prophylaxis Protonix I performed an examination of the patient and discussed their management with the Nurse Practitioner. I have reviewed the Nurse Practitioner's notes and agree with the documented findings and plan of care
[2018-07-05] MEDS: OLANZapine 2.5 MG TAB PO SCH (20:46)
[2018-07-05] MEDS: traZODone HCL 50 MG TAB PO SCH (20:46)
[2018-07-06] MEDS: metroNIDAZOLE-NS PMX 500 MG in SALINE 1 100ML.BAG IVPB SCH ×2 (01:35→07:52)
[2018-07-06 06:10] VITALS: BP 127/67; PULSE 60; RESP 16; TEMP 97.6
[2018-07-06] MEDS: buPROPion XL 300 MG TAB.ER.24H PO SCH (07:51)
[2018-07-06] MEDS: ATORVASTATIN 10 MG TAB PO SCH (07:51)
[2018-07-06] MEDS: PANTOPRAZOLE 40 MG/10 ML VIAL IVP SCH (07:51)
[2018-07-06] MEDS: SODIUM CHLORIDE 0.9% 1,000 ML IV SCH (07:53)
[2018-07-06 09:00] LABS: Basophils % (A) 1 %; Eosinophils # (A) 0.2 k/uL (0-0.7); Eosinophils % (A) 2 %; HCT 37.1 % (39.0-53.0); HGB 12.1 gm/dL (13.0-17.5); Lymphocytes # (A) 0.9 k/uL (1.0-4.8); Lymphocytes % (A) 14 %; MCH 29.2 pg (25.0-35.0); MCHC 32.6 g/dL (31.0-37.0); MCV 89.5 fL (80.0-100.0); Mean Platelet Volume 7.4; Monocytes # (A) 0.3 k/uL (0-1.0); Monocytes % (A) 5 %; Neutrophils # (A) 4.8 k/uL (1.3-7.7); Neutrophils % (A) 75 %; Platelet Count 220 k/uL (150-450); RBC 4.15 m/uL (4.30-5.90); RDW 13.4 % (11.5-15.5); WBC 6.4 k/uL (3.8-10.6)
[2018-07-06] MEDS ORDERED: ENOXAPARIN 40 MG/0.4 ML SYRINGE SQ SCH (09:00)
[2018-07-06 09:41] LABS: ALT 26 U/L (21-72); AST 18 U/L (17-59); Albumin 3.4 g/dL (3.5-5.0); Alkaline Phosphatase 76 U/L (38-126); Anion Gap 8 mmol/L; Blood Urea Nitrogen 9 mg/dL (9-20); Calcium 8.5 mg/dL (8.4-10.2); Carbon Dioxide 27 mmol/L (22-30); Chloride 107 mmol/L (98-107); Glucose 135 mg/dL (74-99); Potassium 4.1 mmol/L (3.5-5.1); Sodium 142 mmol/L (137-145); Total Bilirubin 0.7 mg/dL (0.2-1.3); Total Protein 6.1 g/dL (6.3-8.2)
[2018-07-06 11:38] VITALS: BMI 32.6
--- NOTE | 2018-07-06 13:07 | P.DS ---
Providers Date of admission: 07/05/18 10:58 Expected date of discharge: 07/06/18 Attending physician: eBcka Obrien Consults: 07/03/18 10:37 Consult Physician Routine Consulting Provider: Johan Moreno Consult Reason/Comments: Diverticulitis Do you want consulting provider notified?: Yes Primary care physician: Tiara Stella [place] [facility] Course: Discharge diagnosis 1. Diverticulitis with fever. CT of abdomen and pelvis completed showing diverticulitis involving the distal descending colon. No evidence for perforation or abscess collection. Patient started on Flagyl and Rocephin for IV antibiotics currently maintained on clear liquid diet. Patient was evaluated by surgical services. No surgical intervention at this time. Patient still having elevated tmep 101. Diet has been advanced to full liquid per surgical services. Patient will be DC'd on Ceftin and Flagyl for 1 more week. Patient to follow-up outpatient surgical services for outpatient colonoscopy. Patient has been afebrile since 07/04/2018 2. History of hyperlipidemia. Maintained on Lipitor 3. History of depression. Home meds resumed Hospital Course This is a 72-year-old male patient of Dr. Douglas. Patient presented with complaints of abdominal pain that started yesterday afternoon. Patient denies any nausea vomiting or diarrhea. CT of abdomen and pelvis completed showing diverticulitis involving the distal descending colon. No evidence for perforation or abscess collection. Patient has a past medical history of hyperlipidemia and depression. Patient has elevated white count of 12.8. Patient also febrile with a temp of 100.3. Patient is currently sitting up in chair. Patient is maintained on clear liquid diet. At this time patient is still having some abdominal pain. Patient denies nausea vomiting or diarrhea. Patient denies any blood with stool. Patient is maintained on Flagyl and Rocephin for IV antibiotics. Blood culture has been ordered. Patient denies a ny significant cardiac or pulmonary history. Patient denies alcohol or nicotine use. Patient denies chest pain or shortness breath. Patient denies any nausea or vomiting. Patient is complaining of abdominal pain. Patient denies any urinary burning or frequency. On 07/04/2018 patient is alert and oriented 3. Patient does report some pain improvement with lower abdomen. Slightly tender to palpation. Any bowel movement. Patient remains on clear liquid diet. Patient was evaluated by surgical services. No surgical intervention at this time. We'll continue IV antibiotics Rocephin and Flagyl. At this time patient denies chest pain or shortness breath. Patient denies nausea or vomiting. Patient denies any urinary burning or frequency On 07/05/2018 patient is alert and oriented 3. Patient does state some improvement with Jarek pain. Patient is still having slight tenderness. Patient also having bowel movements. Patient febrile last night was 101. Patient remains on Flagyl and Rocephin for IV antibiotics. At this time patient denies chest pain or shortness breath. Patient denies nausea vomiting or diarrhea. Patient denies any urinary burning or frequency On 07/06/2018 patient is alert and oriented 3. Patient reports significant improvement with abdominal pain. Patient has been tolerating low fiber diet. Patient denies nausea vomiting. Patient has been having normal bowel movements. Patient has been cleared for discharge from surgical services. Patient has been afebrile since 07/04/2018. White count has normalized. At this time patient denies chest pain or shortness breath. Patient denies nausea vomiting or diarrhea. Patient denies any urinary burning or frequency patient will be discharged home and to follow-up with surgical services for further management and possible outpatient colonoscopy. I performed an examination of the patient and discussed their management with the Nurse Practitioner. I have reviewed the Nurse Practitioner's notes and agree with the documented findings and plan of care Patient Condition at Discharge: Stable Plan - Discharge Summary Discharge Rx Participant: No New Discharge Prescriptions: New Pantoprazole Sodium [Protonix] 40 mg PO DAILY 30 Days #30 tablet. Cefuroxime Axetil [Ceftin] 500 mg PO BID 7 Days #14 tab metroNIDAZOLE [Flagyl] 500 mg PO Q8HR 7 Days #21 tab Continue traZODone HCL 50 mg PO HS buPROPion XL [Wellbutrin XL] 300 mg PO DAILY Simvastatin [Zocor] 20 mg PO DAILY OLANZapine [ZyPREXA] 7.5 mg PO HS Ergocalciferol (Vitamin D2) [Vitamin D2] 50,000 units PO SA Multivitamins, Thera [Multivitamin (formulary)] 1 tab PO DAILY Discharge Medication List Ergocalciferol (Vitamin D2) [Vitamin D2] 50,000 units PO SA 07/03/18 [History] Multivitamins, Thera [Multivitamin (formulary)] 1 tab PO DAILY 07/03/18 [History] OLANZapine [ZyPREXA] 7.5 mg PO HS 07/03/18 [History] Simvastatin [Zocor] 20 mg PO DAILY 07/03/18 [History] buPROPion XL [Wellbutrin XL] 300 mg PO DAILY 07/03/18 [History] traZODone HCL 50 mg PO HS 07/03/18 [History] Cefuroxime Axetil [Ceftin] 500 mg PO BID 7 Days #14 tab 07/06/18 [Rx] Pantoprazole Sodium [Protonix] 40 mg PO DAILY 30 Days #30 tablet. 07/06/18 [Rx] metroNIDAZOLE [Flagyl] 500 mg PO Q8HR 7 Days #21 tab 07/06/18 [Rx] Follow up Appointment(s)/Referral(s): Tiara Douglas DO [Primary Care Provider] - 1-2 days Johan Moreno MD [STAFF PHYSICIAN] - 2 Weeks
[2018-07-06] MEDS ORDERED: PANTOPRAZOLE 40 MG TABLET PO SCH (17:30)
== END 2018-07-06 14:14 | disposition home or self-care (01) | DRG 392 ==
LOC: EC 20:43 → 4MS4W 23:53 → INTOOBSV 23:53 → 4MS4W 07-03 00:08 → OBSVTOIN 07-05 10:58
PROVIDERS: ADMIT Internal Medicine; ATTEND Internal Medicine
DX: K57.32 Diverticulitis of large intestine without perforation or abscess without bleeding (principal); E78.5 Hyperlipidemia, unspecified; I10 Essential (primary) hypertension; F32.9 Major depressive disorder, single episode, unspecified; E78.00 Pure hypercholesterolemia, unspecified; Z79.899 Other long term (current) drug therapy; Z88.5 Allergy status to narcotic agent; Z90.89 Acquired absence of other organs; Z98.890 Other specified postprocedural states
CPT/HCPCS: 36415; 74177; 80053; 81001; 82150; 83605; 83690; 85025; 87040; 96361; 96365; 96375; 99285

== ENCOUNTER 2018-08-02 09:03 | Day surgery (SDC) | payer MEDICARE, OTHER ==
[~2018-08-02 09:03] MED LIST: LACTATED RINGERS 1,000 ML IV SCH
[2018-08-02 09:32] VITALS: TEMP 98
[2018-08-02] MEDS ORDERED: PROPOFOL 10 MG/ML 20 ML VIAL IV ONE (10:26)
--- NOTE | 2018-08-02 10:32 | P.GSHP ---
History of Present Illness H&P Date: 08/02/18 Chief Complaint: History of diverticulitis This a 72-year-old male status post colonoscopy. Patient has history of diverticulitis. Patient underwent CAT scan last month which showed evidence of diverticulitis. Patient's pain has improved. 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 History of Any Multi-Drug Resistant Organisms: None Reported Past Surgical History: Tonsillectomy Additional Past Surgical History / Comment(s): 07/05/18 IP ADMISSION FOR DIVERTICULITIS. Left wrist ganglion cyst removed. Past Anesthesia/Blood Transfusion Reactions: No Reported Reaction Past Psychological History: Depression Smoking Status: Never smoker Past Alcohol Use History: Rare Past Drug Use History: None Reported - Past Family History Mother Family Medical History: No Reported History Additional Family Medical History / Comment(s): gallbladder removal Brother(s) Family Medical History: No Reported History Medications and Allergies Home Medications Medication Instructions Recorded Confirmed Type Ergocalciferol (Vitamin D2) 50,000 units PO SA 07/03/18 08/02/18 History [Vitamin D2] Multivitamins, Thera [Multivitamin 1 tab PO DAILY 07/03/18 08/02/18 History (formulary)] OLANZapine [ZyPREXA] 7.5 mg PO HS 07/03/18 08/02/18 History Simvastatin [Zocor] 20 mg PO DAILY 07/03/18 08/02/18 History buPROPion XL [Wellbutrin XL] 300 mg PO QAM 07/03/18 08/02/18 History traZODone HCL 50 mg PO 07/03/18 08/02/18 History Pantoprazole Sodium [Protonix] 40 mg PO QAM 08/01/18 08/02/18 History Allergies Allergy/AdvReac Type Severity Reaction Status Date / Time codeine Allergy Nausea & Verified 08/02/18 09:26 Vomiting meperidine [From Demerol] Allergy Nausea & Verified 08/02/18 09:26 Vomiting Surgical - Exam Vital Signs Temp Pulse Resp BP Pulse Ox 98.0 F 57 L 15 150/69 97 08/02/18 09:29 08/02/18 09:29 08/02/18 09:29 08/02/18 09:29 08/02/18 09:29 - General well developed, well nourished, no distress - Eyes PERRL - ENT normal pinna - Neck no masses - Respiratory normal expansion - Cardiovascular Rhythm: regular - Abdomen Abdomen: soft, non tender Assessment and Plan Assessment: History of diverticula is. We'll perform colonoscopy.
[2018-08-02 10:46] VITALS: RESP 16
--- NOTE | 2018-08-02 10:54 | P.OP ---
Date of Procedure: 08/02/18 Preoperative Diagnosis: Diverticulitis Postoperative Diagnosis: Diverticulosis Procedure(s) Performed: Colonoscopy Anesthesia: MAC Surgeon: Johan Moreno Pathology: none sent Condition: stable Description of Procedure: The patient's placed on the endoscopy table in the lateral position. He received IV sedation. Digital rectal exam was performed which revealed no abnormalities. The flexible colonoscope was then placed patient anus passed throughout the entire colon. The ileocecal valve was visualized. The cecum, ascending and transverse colon appeared normal. In the descending; there was diverticular changes. There were extensive diverticular changes of the sigmoid colon. There is no evidence of any active diverticulitis. Scope was then brought back the rectum and this appeared normal. Scope withdrawn for patient.
[2018-08-02 10:58] VITALS: BP 156/72; PULSE 61
== END 2018-08-02 11:21 | disposition home or self-care (01) ==
LOC: ORWHC2ENDO 09:03
PROVIDERS: ATTEND Surgery
DX: K57.30 Diverticulosis of large intestine without perforation or abscess without bleeding (principal); E78.5 Hyperlipidemia, unspecified; Z88.5 Allergy status to narcotic agent; F32.9 Major depressive disorder, single episode, unspecified; Z79.899 Other long term (current) drug therapy; K21.9 Gastro-esophageal reflux disease without esophagitis
CPT/HCPCS: 45378; J2704

== ENCOUNTER → 2022-10-09 | Outpatient (CLI) | payer OTHER ==
--- NOTE | 2022-10-09 08:51 | MR ---
EXAMINATION TYPE: MR brain and iac wo/w con DATE OF EXAM: 10/09/2022 8:45 AM COMPARISON: NONE HISTORY: Hearing loss TECHNIQUE: Multiplanar and multispin-echo imaging of the brain was performed both before and after the administr ation of contrast. High-resolution images are obtained of the internal auditory canals performed uti lizing 8.5 mL intravenous Gadavist contrast. The ventricles, basal cisterns and sulci overlying the cerebral convexities are within normal limits. There is no evidence for midline shift or mass effect. Acute intracranial hemorrhage or extra-axial collection is not evident. There is evidence of periventricular white matter ischemic demyelination and scattered remote deep wh ite matter insults. High-resolution imaging of the internal auditory canals fails demonstrate evidence for an enhancing a coustic schwannoma or cerebellopontine cistern angle mass. Following contrast administration, there is no evidence for pathologic enhancement or enhancing mass. The paranasal sinuses and mastoid air cells are well-aerated. IMPRESSION: 1. No evidence of acoustic schwannoma or cerebellopontine angle mass. 2. Age-related atrophic and chronic small vessel ischemic change.
== END | disposition home or self-care (01) ==
LOC: RADMRIMAIN 07:49
PROVIDERS: ATTEND Otolaryngology
DX: G31.1 Senile degeneration of brain, not elsewhere classified (principal); I67.82 Cerebral ischemia; R42 Dizziness and giddiness
CPT/HCPCS: 70553; A9585

== ENCOUNTER 2023-09-29 07:55 | Day surgery (SDC) | payer OTHER ==
[2023-09-28 08:45] VITALS: BMI 28.8
[2023-09-29] MEDS: LACTATED RINGERS 1,000 ML IV SCH (08:50)
[2023-09-29] MEDS: LACTATED RINGERS 1,000 ML IV ONE (08:54)
[2023-09-29] MEDS ORDERED: PROPOFOL 10 MG/ML 20 ML VIAL IV ONE (08:57)
[2023-09-29 09:00] VITALS: TEMP 97
--- NOTE | 2023-09-29 09:02 | P.GSHP ---
History of Present Illness H&P Date: 09/29/23 Chief Complaint: Screening colonoscopy This is a 77-year-old male presents today for screening colonoscopy. Patient denies any significant GI complaints. 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 "Pre diabetic" History of Any Multi-Drug Resistant Organisms: None Reported Past Surgical History: Tonsillectomy Additional Past Surgical History / Comment(s): 07/05/18 IP ADMISSION FOR DIVERT ICULITIS. Left wrist ganglion cyst removed. Bi lat laser surgery to eyes. Colonoscopy-polyps. Past Anesthesia/Blood Transfusion Reactions: No Reported Reaction Additional Past Anesthesia/Blood Transfusion Reaction / Comment(s): No hx of blood transfusion. Smoking Status: Never smoker - Past Family History Mother Family Medical History: No Reported History Additional Family Medical History / Comment(s): gallbladder removal Brother(s) Family Medical History: No Reported History Medications and Allergies Home Medications Medication Instructions Recorded Confirmed Type buPROPion XL [Wellbutrin XL] 300 mg PO [facility] 07/03/18 09/29/23 History traZODone HCL 50 mg PO HS 07/03/18 09/29/23 History Aspirin EC [Ecotrin Low Dose] 81 mg PO QA 09/28/23 09/28/23 History Atorvastatin [Lipitor] 40 mg PO QAM 09/28/23 09/29/23 History Allergies Allergy/AdvReac Type Severity Reaction Status Date / Time codeine Allergy Nausea & Verified 09/29/23 08:44 Vomiting meperidine [From Demerol] Allergy Nausea & Verified 09/29/23 08:44 Vomiting Surgical - Exam Vital Signs Temp Pulse Resp BP Pulse Ox 97.0 F L 53 L 16 153/70 95 09/29/23 08:45 09/29/23 08:45 09/29/23 08:45 09/29/23 08:45 09/29/23 08:45 - General well developed, well nourished, no distress - Eyes PERRL - ENT normal pinna - Neck no masses - Respiratory normal expansion - Cardiovascular Rhythm: regular - Abdomen Abdomen: soft, non tender Assessment and Plan Plan: Will perform screening colonoscopy
--- NOTE | 2023-09-29 09:17 | P.OP ---
Date of Procedure: 09/29/23 Preoperative Diagnosis: Screening colonoscopy Postoperative Diagnosis: Normal colon Procedure(s) Performed: Screening colonoscopy Anesthesia: MAC Surgeon: Johan Moreno Pathology: none sent Condition: stable Disposition: PACU Description of Procedure: PROCEDURE: The patient was placed on the endoscopy table in the lateral position. Digital rectal examination was performed which revealed no abnormalities. The prostate was symmetrical without nodules. Flexible colonoscope was then placed in the patient's anus and passed throughout the entire colon. The ileocecal valve was visualized. The cecum, ascending, transverse, descending and sigmoid colon were normal. The rectum was normal as well. There were no masses, polyps or diverticula noted in the entire colon. SUMMARY OF FINDINGS: Normal colonoscopy.
[2023-09-29 09:33] VITALS: BP 123/61; PULSE 59; RESP 16
== END 2023-09-29 10:03 | disposition home or self-care (01) ==
LOC: ORWHC2ENDO 07:55
PROVIDERS: ATTEND Surgery
DX: Z12.11 Encounter for screening for malignant neoplasm of colon (principal); E78.5 Hyperlipidemia, unspecified; Z88.5 Allergy status to narcotic agent; Z90.89 Acquired absence of other organs
CPT/HCPCS: J2704; G0121; 45378